=== PATIENT | female | born 1940 | race Caucasian/White ===

== ENCOUNTER 2019-03-16 12:51 | Emergency (ER) | payer OTHER ==
[~2019-03-16] VITALS: Ht 149.9 cm; Wt 63.5 kg
[2019-03-16] MEDS ORDERED: LISINOPRIL2.5 MG PO (13:02)
[2019-03-16] MEDS ORDERED: MOBIC7.5 MG PO (14:41)
[2019-03-16] MEDS ORDERED: LIDODERM1 EACH TOP (14:41)
[2019-03-16] MEDS ORDERED: ZANAFLEX2 M1 PO (14:41)
[2019-03-16 14:47] VITALS: BP 183/90
== END 2019-03-16 14:47 | disposition home or self-care (01) ==
LOC: M.ERS 12:51
DX: M54.5 Low back pain (principal); I10 Essential (primary) hypertension; Z98.51 Tubal ligation status

== ENCOUNTER 2021-05-30 11:21 | Emergency (ER) | payer MEDICARE ==
[~2021-05-30] VITALS: Ht 154.9 cm; Wt 65.8 kg
[~2021-05-30 11:21] MED LIST: LIDODERM1 EACH TOP; LISINOPRIL2.5 MG PO; MOBIC7.5 MG PO; ZANAFLEX2 M1 PO
[2021-05-30] MEDS ORDERED: ALTACE 1.25 M1.25 MG PO (11:42)
[2021-05-30 11:58] LABS: URINE BILIRUBIN NEGATIVE (Negative); URINE BLOOD 2+ (Negative); URINE CLARITY CLEAR; URINE COLOR YELLOW; URINE GLUCOSE-RANDOM NEGATIVE (Negative); URINE KETONES NEGATIVE (Negative); URINE LEUKOCYTES-REFLEX 1+ (Negative); URINE NITRITE-REFLEX NEGATIVE (Negative); URINE PROTEIN NEGATIVE (Negative); URINE UROBILINOGEN 0.2 E.U./dl (0.2-1.0)
[2021-05-30 12:00] LABS: BACTERIA-REFLEX 1-9 Few /HPF (None Seen); CASTS None Seen /LPF (None Seen); CRYSTALS None Seen /LPF (None Seen); SQUAMOUS 0-3 Few /LPF (0-3); URINE RBC 3-10 Few /HPF (0-2); URINE WBC-REFLEX 6-15 Few /HPF (0-5)
[2021-05-30] MEDS ORDERED: CEPHALEXIN500 MG PO (12:22)
[2021-05-30] MEDS ORDERED: PYRIDIUM200 MG PO (12:22)
[2021-05-30 12:28] VITALS: BP 97/57
== END 2021-05-30 12:29 | disposition home or self-care (01) ==
LOC: M.ERS 11:21
PROVIDERS: Emergency Medicine Emergency Medical Services
DX: N39.0 Urinary tract infection, site not specified (principal); I10 Essential (primary) hypertension; Z98.51 Tubal ligation status; Z79.899 Other long term (current) drug therapy